=== PATIENT | female | born 1960 | race Caucasian/White ===

== ENCOUNTER 2017-11-22 00:23 | Emergency (ER) | payer BC ==
[~2017-11-22] VITALS: Ht 152.4 cm; Wt 64.5 kg
[~2017-11-22 00:23] MED LIST: ATORVASTATIN CA20 MG PO; BENADRYL ALLERG25 MG PO; CETIRIZINE HCL10 M1 PO; CIPRO500 MG PO; LIDODERM 5% P1 PATCH TD; NAPROXEN500 MG PO; PREDNISONE50 MG PO; ZANTAC150 MG PO; ZYRTEC10 M3 PO
[2017-11-22 01:08] LABS: HEMATOCRIT 40.2 % (36.0-46.0); HEMOGLOBIN 13.7 G/DL (11.9-15.5); MCH 31.3 PG (29.0-34.0); MCHC 34.1 G/DL (30.0-36.0); MCV 91.8 FL (83-99); PLATELET COUNT 301 K/uL (156-360); RBC DIS.WIDTH-CV 12.3 % (11.8-14.6); RBC DIS.WIDTH-SD 41.7 % (39-53); RED BLOOD COUNT 4.38 M/uL (3.80-5.20); WHITE BLOOD COUNT 13.2 K/uL (4.1-10.2)
[2017-11-22 01:19] LABS: CHLORIDE 104 mEq/L (99-109); SODIUM 137 mEq/L (136-147)
[2017-11-22 01:21] LABS: GLUCOSE 109 mg/dL (70-99)
[2017-11-22 01:24] LABS: SERUM ETHYL ALCOHOL 158 mg/dL
[2017-11-22 01:25] LABS: CREATININE 0.8 mg/dL (0.6-1.3); GFR ESTIMATE (CALCULATED) > 59 mL/min/
[2017-11-22 01:26] LABS: UREA NITROGEN (BUN) 17 mg/dL (9-23)
[2017-11-22 02:26] VITALS: BP 105/74
== END 2017-11-22 02:27 | disposition home or self-care (01) ==
LOC: EME → EDBD 00:23 → EME 00:23
PROVIDERS: Emergency Medicine
DX: M54.2 Cervicalgia (principal); R51 Headache; F10.129 Alcohol abuse with intoxication, unspecified; E87.6 Hypokalemia; Y90.6 Blood alcohol level of 120-199 mg/100 ml; Y04.0XXA Assault by unarmed brawl or fight, initial encounter; Z97.2 Presence of dental prosthetic device (complete) (partial); E78.5 Hyperlipidemia, unspecified; F41.9 Anxiety disorder, unspecified; Z88.2 Allergy status to sulfonamides; Z88.5 Allergy status to narcotic agent; Z87.891 Personal history of nicotine dependence
CPT/HCPCS: 70450; 72125; 80048; 85027; 99281; 99285; G0480